=== PATIENT | male | born 1950 | race Caucasian/White ===

== ENCOUNTER → 2017-04-25 | Outpatient (CLI) | payer MEDICARE, OTHER ==
[~2017-04-25] MED LIST: ALBU1AER INH; AMLO2.5T PO; APIX5TAB PO; ATEN-100 PO; CETI10 PO; CHOL1CAP6 PO; FURO20 PO; GLIP10TA6 PO; HCTZ/LOSARTAN; HYDR-1530 PO; IRON325T2 PO; LANTUSP SQ; METF-324 PO; PRAV20TA PO; ZOLP10TA3 PO
--- NOTE | 2017-04-27 09:51 | RSPPFT ---
DATE OF PROCEDURE: 04/25/17 COMMENTS: Spirometry shows FVC of 4.3 predicted 5.1, FEV1 of 3.2 predicted 4.0, FEV1/FVC ratio 74% predicted 78%. Lung volumes are within the predicted range. DLCO is 72% of predicted but within the predicted range when corrected for alveolar volume. IMPRESSION: On the basis of the above, patient has flow values and lung volumes within the predicted range. There has not been a significant change when compared to prior examination on March of 2015 when his FVC was 2.4, FEV1 was 3.3, TLC was 6.8.
== END ==
LOC: PHRSP 08:35
PROVIDERS: ATTEND Family Medicine
DX: J45.909 Unspecified asthma, uncomplicated (principal)
CPT/HCPCS: 94060; 94729